=== PATIENT | female | born 1985 | race Caucasian/White ===

== ENCOUNTER 2022-08-05 16:59 | Emergency (ER) | payer OTHER, SELFPAY ==
--- NOTE | ~2022-08-05 | US_ITS ---
US right upper quadrant DATE: 08/05/2022 23:14 INDICATION: Abdominal pain TECHNIQUE: Real-time imaging COMPARISON: 07/12/2017 gallbladder ultrasound examination, reported unremarkable FINDINGS: No hepatic or pancreatic space-occupying mass lesion is evident. Normal hepatopedal portal venous flow direction. There are filling defects in the dependent aspect of the gallbladder, which shadowing, consistent wit h cholelithiasis. No gallbladder wall thickening. Negative sonographic Palma's sign. The common bile duct measures 3.4 mm, within normal range. IMPRESSION: Cholelithiasis Reviewed, dictated and finalized at [facility] Reviewed, dictated and finalized at [facility]. CLASS MODEL IMPRESSION: Cholelithiasis
[2022-08-05 17:25] VITALS: BP 115/79; PULSE 82; RESP 12; TEMP 36.7; O2SAT 98
[2022-08-05 17:54] LABS: Basophils Percent Auto 0.4 % (0.2-1.2); Eosinophils Absolute Auto 0.2 K/mm3 (0-0.3); Eosinophils Percent Auto 1.7 % (0-4.4); Hematocrit 41.9 % (37.0-47.0); Hemoglobin 14.2 g/dL (12.0-15.0); Immature Granulocyte Absolute 0.03 K/mm3 (0.00-0.031); Immature Granulocyte Percent A 0.3 % (0-0.5); Lymphocytes Absolute Auto 3.29 K/mm3 (0.9-3.2); Lymphocytes Percent Auto 36.3 % (18.3-44.2); Mean Corpuscular HGB Conc 33.9 g/dl (32-36); Mean Corpuscular Hemoglobin 30.6 pg (26-34); Mean Corpuscular Volume 90.3 fl (80-100); Mean Platelet Volume 9.7 fl (7.4-10.4); Monocytes Absolute Auto 0.4 K/mm3 (0.1-0.6); Monocytes Percent Auto 4.5 % (2.6-8.5); Neutrophils Absolute Auto 5.1 K/mm3 (1.3-6.7); Neutrophils Percent Auto 56.8 % (45.5-73.1); Platelet Count Result 344 k/mm3 (150-375); Red Blood Count 4.64 M/mm3 (4.2-5.4); Red Cell Distribution Width 11.8 % (11.5-14.5); White Blood Count 9.1 K/mm3 (4.5-10.0)
[2022-08-05 18:01] LABS: Alanine Aminotransferase 28 U/L (6-35); Alkaline Phosphatase 54 U/L (38-126); Anion Gap 7 mmol/L (8-16); Aspartate Amino Transferase 25 U/L (14-36); Bilirubin,Total 0.4 mg/dL (0.2-1.3); Blood Urea Nitrogen 9 mg/dL (7-17); Carbon Dioxide 28 mmol/L (22-30); Chloride 101 mmol/L (98-107); Estimated CRCL calculation 100 ml/min; Estimated Glomerular Filt Rate > 60; Glucose 92 mg/dL (65-110); Lipase 107 U/L (23-300); Potassium 3.6 mmol/L (3.4-5.0); Sodium 136 mmol/L (137-145)
[2022-08-05 18:08] LABS: Add Urine Microscopic? YES; Appearance Urine Clear (Clear); Bilirubin Urine Negative (Negative); Blood Urine 1+ (Negative); Color Urine Light Yellow (Yellow); Glucose Urine UA Negative (Negative); Ketones Urine Negative (Negative); Leukocyte Esterase Ur Negative LEU/UL (Negative); Nitrate Urine Negative (Negative); Protein Urine Negative (Negative); Specific Grav Ur 1.015 (1.001-1.035); Urobilinogen Urine 0.2 mg/dL (<2.0)
[2022-08-05 18:18] LABS: Mucus Urine Rare /lpf; Squamous Epithelial Cell Urine Rare /hpf (Few); WBC Urine 0-3 /hpf
[2022-08-05 19:19] VITALS: BP 127/78; PULSE 73; O2SAT 100
--- NOTE | 2022-08-05 23:08 | ED.ABDPAIN ---
HPI - Abdominal Pain General Chief Complaint: Abdominal Pain Stated Complaint: right upper abdomen pain Time Seen by Provider: 08/05/22 22:03 History of Present Illness HPI narrative: Patient is a 37-year-old female who presents ER with right upper quadrant abdominal pain. Ongoing for 2 weeks. No radiation. Worse with eating. She has had some orange-colored stool. She does have history of IBS. Has not found any alleviating factors. On occasion she has had nausea and vomiting. None today. Related Data Allergies Allergy/AdvReac Type Severity Reaction Status Date / Time latex Allergy Unknown rash Verified 04/28/17 12:27 Review of Systems Review of Systems: All systems reviewed & are unremarkable except as noted in HPI and below Constitutional: Constitutional: Denies chills, Denies fatigue and Denies fever(s) Cardiovascular: Cardiovascular: Denies chest pain, Denies rapid heart rate and Denies radiating jaw, neck or arm pain Respiratory: Respiratory: Denies cough and Denies dyspnea Gastrointestinal: Gastrointestinal: Reports abdominal pain, Reports diarrhea, Reports nausea and Reports vomiting Genitourinary: Genitourinary: Denies dysuria and Denies flank pain PMFSH Past Medical History Medical History (Updated 08/05/22 @ 23:46 by Parvez Parker MD) Irritable bowel syndrome Surgical History Surgical History (Updated 08/05/22 @ 23:14 by Parvez Parker MD) History of colonoscopy History of hysterectomy History of tonsillectomy Exam Narrative: GENERAL: Well-appearing, well-nourished, and in no acute distress. HEAD: Normocephalic, atraumatic. EYES: PERRL and EOMI. ENT: Mucous membranes moist. CHEST: Clear to auscultation. No respiratory distress. HEART: Regular rate and rhythm. Normal peripheral pulses. ABDOMEN: Soft, tender palpation right upper quadrant without guarding, nondistended. EXTREMITIES: Normal range of motion. No edema. SKIN: Warm, dry, no rash. NEURO: Alert and oriented x3. PSYCH: Normal mood and affect. Course Course Emergency Course: Patient informed of results. Pain improved. Discussed treatment plan including low-fat diet and pain/nausea control. Discussed return precautions. Patient verbalized understanding. We will give general surgery follow-up. Vital Signs Vital signs: Vital Signs Temperature 98.1 F 08/05/22 17:25 Pulse Rate 82 08/05/22 17:25 Respiratory Rate 12 08/05/22 17:25 Blood Pressure 115/79 08/05/22 17:25 Pulse Oximetry 98 08/05/22 17:25 Oxygen Delivery Room Air 08/05/22 17:25 Temperature 98.1 F 08/05/22 17:25 Pulse Rate 73 08/05/22 19:19 Respiratory Rate 12 08/05/22 17:25 Blood Pressure 127/78 08/05/22 19:19 Pulse Oximetry 100 08/05/22 19:19 Oxygen Delivery Room Air 08/05/22 17:25 MDM - Abdominal Pain Lab Data 08/05/22 17:39 08/05/22 17:39 Labs: Lab Results 08/05/22 08/05/22 08/05/22 Range/Units 17:39 17:39 17:39 WBC 9.1 (4.5-10.0) K/mm3 RBC 4.64 (4.2-5.4) M/mm3 Hgb 14.2 (12.0-15.0) g/dL Hct 41.9 (37.0-47.0) % MCV 90.3 (80-100) fl MCH 30.6 (26-34) pg MCHC 33.9 (32-36) g/dl RDW 11.8 (11.5-14.5) % Plt Count 344 (150-375) k/mm3 MPV 9.7 (7.4-10.4) fl Immature Gran % (Auto) 0.3 (0-0.5) % Neut % (Auto) 56.8 (45.5-73.1) % Lymph % (Auto) 36.3 (18.3-44.2) % [place] % (Auto) 4.5 (2.6-8.5) % Eos % (Auto) 1.7 (0-4.4) % Baso % (Auto) 0.4 (0.2-1.2) % Lymph # (Auto) 3.29 H (0.9-3.2) K/mm3 [place] # (Auto) 0.4 (0.1-0.6) K/mm3 Eos # (Auto) 0.2 (0-0.3) K/mm3 Baso # (Auto) 0.0 (0.0-0.1) K/mm3 Abs Immat Gran (auto) 0.03 (0.00-0.031) K/mm3 Absolute Neuts (auto) 5.1 (1.3-6.7) K/mm3 Absolute Nucleated RBC 0.0 (0.0-0.012) K/mm3 Nucleated RBC % 0.0 (0.0-0.2) % Sodium 136 L (137-145) mmol/L Potassium 3.6 (3.4-5.0) mmol/L Chloride 101 (98-107) mmol/L Carbon
[2022-08-05 23:29] LABS: Pregnancy On Board Control Positive; Urine Pregnancy Test Negative
== END 2022-08-06 00:11 | disposition home or self-care (01) ==
PROVIDERS: Emergency Medicine; Emergency Provider Emergency Medicine; PCP Internal Medicine
DX: K80.20 Calculus of gallbladder without cholecystitis without obstruction (principal); K58.9 Irritable bowel syndrome, unspecified; Z90.710 Acquired absence of both cervix and uterus
CPT/HCPCS: 36415; 76705; 80053; 81001; 81025; 83690; 85025; 99284